=== PATIENT | female | born 1945 | race Caucasian/White ===

== ENCOUNTER → 2017-04-07 | Outpatient (CLI) | payer MEDICARE, BC ==
[~2017-04-07] MED LIST: ASPI325 PO; ATOR40TA PO; CALCAVITD PO; CALCIUM CITRAT1 EAC6 PO; CURCUMIN PO; DICL75ER PO; DIPH50 PO; ENOX40I SC; Excedrin Extra1 EACH PO; FISH1000 PO; GLUC500 PO; GLUCOSAMINE CH1 EAC3 PO; GLUCOSAMINE-CH1 EA18 PO; Glucophage1000 MG PO; LISI5; Lisinopril2.5 MG PO; METF500 PO; OXYACE5T PO; OXYB5 PO; RALO60 PO; ROSU10TA PO; TRAM50 PO; TRIHYD253A PO; TURMERIC PO; ULTRA COQ1075 MG PO; [UNRECOGNIZED DRUG - OTHER] PO
== END ==
LOC: LAB SHORT 08:28
DX: N39.0 Urinary tract infection, site not specified (principal)
CPT/HCPCS: 87077; 87086; 87186

== ENCOUNTER → 2017-06-23 | Outpatient (CLI) | payer MEDICARE, BC | END | disposition home or self-care (01) | LOC: LAB SHORT 09:06 → LAB EV 09:06 | DX: N39.0 Urinary tract infection, site not specified (principal) | CPT/HCPCS: 87077; 87086; 87186 ==

== ENCOUNTER → 2017-07-16 | Outpatient (CLI) | payer MEDICARE, BC ==
[2017-07-16 12:03] LABS: Source, Urine Voided
[2017-07-16 12:16] LABS: Bacteria Rare /hpf; Red Blood Cells, Urine Not Seen /hpf (0-2); Squamous Epithelial Cells Rare /hpf (Few)
== END | disposition home or self-care (01) ==
LOC: LAB SHORT 12:02 → LAB EV 12:02
PROVIDERS: General Practice
DX: R82.90 Unspecified abnormal findings in urine (principal)
CPT/HCPCS: 81015; 87086

== ENCOUNTER → 2018-08-26 | Outpatient (CLI) | payer MEDICARE, BC | END | disposition home or self-care (01) | LOC: LAB SHORT 09:10 → LAB EV 09:10 | DX: N39.0 Urinary tract infection, site not specified (principal) | CPT/HCPCS: 87077; 87086; 87186 ==

== ENCOUNTER → 2020-06-15 | Outpatient (CLI) | payer MEDICARE, BC | LOC: LAB SHORT 12:29 | DX: N39.0 Urinary tract infection, site not specified (principal) | CPT/HCPCS: 87086 ==

== ENCOUNTER 2021-04-10 08:06 | Day surgery (SDC) | payer MEDICARE, BC ==
[~2021-04-10] VITALS: Ht 165.1 cm; Wt 74.3 kg
[2021-04-10] MEDS ORDERED: VIT1CAPS12 (08:26)
== END 2021-04-10 11:17 | disposition home or self-care (01) ==
LOC: ORSCSDS 08:06
DX: Z12.11 Encounter for screening for malignant neoplasm of colon (principal); Z86.010 Personal history of colon polyps; D12.0 Benign neoplasm of cecum; D12.2 Benign neoplasm of ascending colon; D12.3 Benign neoplasm of transverse colon; K57.30 Diverticulosis of large intestine without perforation or abscess without bleeding; K44.9 Diaphragmatic hernia without obstruction or gangrene; E11.9 Type 2 diabetes mellitus without complications; I10 Essential (primary) hypertension; E78.5 Hyperlipidemia, unspecified; Z79.899 Other long term (current) drug therapy
CPT/HCPCS: 82947; 88305; J2704; J7120